=== PATIENT | female | born 1935 | race Caucasian/White ===

== ENCOUNTER 2017-01-25 02:31 | Inpatient (IN) | payer MEDICARE ==
[2017-01-25] MEDS ORDERED: NS 0.9% 1000 ML* 1,000 ML IV ONE (02:51)
[2017-01-25] MEDS ORDERED: Aspirin Low Dose CHEW TAB* 81 MG PO ONE (02:51)
[2017-01-25 03:08] LABS: Comments Flag Yes; Hematocrit 44 % (35-47); Hemoglobin 13.2 g/dl (12.0-16.0); Mean Corpuscular HGB Conc 30 g/dl (31-36); Mean Corpuscular Hemoglobin 27 pg (27-31); Mean Corpuscular Volume 89 fL (80-97); Mean Platelet Volume 9 um3 (7.4-10.4); Red Blood Count 4.91 10^6/ul (4.0-5.4); Red Cell Distribution Width 16 % (10.5-15); White Blood Count 16.7 10^3/ul (3.5-10.8)
[2017-01-25 03:09] LABS: Add Diff/Slide Review? Slide Review Added
[2017-01-25 03:23] LABS: ALT 59 U/L (7-52); Alkaline Phosphatase 99 U/L (34-104); BUN/Creatinine Ratio 9.8 (8-20); Blood Urea Nitrogen 14 mg/dL (6-24); CO2 Carbon Dioxide 19 mmol/L (22-32); Calcium 8.5 mg/dL (8.6-10.3); Chloride 104 mmol/L (101-111); Creatine Kinase 393 U/L (10-223); EGFR African American 45.1 (>60); Globulin 2.5 g/dL (2-4); Glucose 322 mg/dL (70-100); Magnesium 2.7 mg/dL (1.9-2.7); Sodium 135 mmol/L (133-145); Total Protein 5.5 g/dL (6.4-8.9)
[2017-01-25 03:27] LABS: Anion Gap 12 mmol/L (2-11); Potassium 4.6 mmol/L (3.5-5.0)
[2017-01-25 03:29] LABS: Troponin I 0.27 ng/mL (<0.04)
[2017-01-25] MEDS ORDERED: Norepinephrine 16MCG/ML IVPRE* 4,000 MCG/250 ML BAG IV ONE (04:22)
[2017-01-25] MEDS ORDERED: NS 0.9% 1000 ML* 1,000 ML IV SCH (04:45)
[2017-01-25] MEDS: Norepinephrine 16MCG/ML IVPRE* 4,000 MCG/250 ML BAG IV SCH ×2 (04:49→08:41)
[2017-01-25] MEDS ORDERED: Iodixanol* (CONTRAST) 320 MG/ML 100 ML SDV IV ONE (04:58)
--- NOTE | 2017-01-25 05:36 | ED ---
Shannen Bansal Salem, scribed for Ck Alonzo MD on 01/25/17 at 0304 . Cardiac Resuscitation - HPI Summary HPI Summary: Patient is a 81 y/o female who presents to the ED per EMS from [facility] s/p cardiac arrest. Pt arrived @ 0223 intubated and on transdermal pacer. Per EMS, she called 911 to report SOB and dropped while on the phone. When EMS arrived, pt was down for 15 minutes and was down for another 34 minutes with EMS. EMS was not able to get a pulse, but they were able to at the hospital. EMS also states pt is on Plavix and Isosorbide. Per EMS, pt's one year ago. Little is known on pts PMHx or FHx. - History of Current Complaint Chief Complaint: EDCardiacArrest Stated Complaint: POST CARDIAC ARREST Hx Obtained From: EMS, Other: - [facility]. Hx From Patient Unobtainable Due To: Extremis Arrest Witnessed: No Down-time Before Basic Life Support Initiated: Down-time before BLS initiated: - 15 minutes before EMS, 34 after. - Prehospital Intervention Breathing: Intubation: - Allergies/Home Medications Allergies/Adverse Reactions: Allergies Allergy/AdvReac Type Severity Reaction Status Date / Time Penicillins Allergy Unknown Unknown Verified 01/25/17 03:45 Reaction Details Sulfa Antibiotics Allergy Unknown Unknown Verified 01/25/17 03:45 Reaction Details Home Medications: Home Medications Albuterol HFA INHALER* [Ventolin HFA Inhaler*] 2 puff INH Q4H PRN 01/25/17 [ History Confirmed 01/25/17] Amlodipine Besylate [Norvasc 5 mg tab] 5 mg PO DAILY 01/25/17 [History Confirmed 01/25/17] Budesonide Flexhaler 90 (NF) [Pulmicort Flexhaler 90 mcg/act (NF)] 2 puff INH BID 01/25/17 [History Confirmed 01/25/17] Loratadine [Claritin 10 MG CAP] 10 mg PO 01/25/17 [History] Mometasone NASAL (NF) [Nasonex (NF)] 1 spray .SEE ORDER 01/25/17 [History] Montelukast Sodium TAB* [Singulair TAB*] 10 mg PO BEDTIME 01/25/17 [History Confirmed 01/25/17] - Past Medical History Past Medical History: Unobtainable Due to Extremis - Family History Family History: Unobtainable Due to Extremis - Social History Social History: Lives Alone - Review of Systems Review of Systems: Unobtainable Due to Extremis Physical Examination - Physical Examination Completion Of Physical Exam Limited Due To: Extremis Resuscitation: Successful - ED Findings Airway: Gag Reflex Absent Breathing: Apnea Circulation/Rhythm: Sinus Disability/Neurological: Unresponsive - Glascow Coma Score Eye Openin - None Motor: 1 - None Verbal: 1 - Intubated Coma Scale Total: 3 T Diagnostics - Vital Signs Vital Signs Temp Pulse Resp BP Pulse Ox 01/25/17 04:40 94.3 F 96 24 63/34 90 01/25/17 04:35 91.9 F 95 68/35 90 01/25/17 04:30 94 75/34 88 01/25/17 04:25 95 70/34 90 01/25/17 04:20 95 77/35 86 01/25/17 04:16 95 66/31 86 01/25/17 04:10 96 70/30 87 01/25/17 04:05 97 70/31 88 01/25/17 04:00 97 75/35 88 01/25/17 03:55 97 77/38 89 01/25/17 03:50 97 76/58 87 01/25/17 03:45 99 82/39 85 01/25/17 03:40 101 79/33 82 01/25/17 03:35 90/51 01/25/17 03:20 56 19 75 01/25/17 03:15 69 19 66/18 72 01/25/17 03:14 61 18 75 01/25/17 02:55 18 - Laboratory Lab Results: Lab Results 01/25/17 01/25/17 01/25/17 Range/Units 02:49 02:49 02:49 WBC 16.7 H (3.5-10.8) 10^3/ul RBC 4.91 (4.0-5.4) 10^6/ul Hgb 13.2 (12.0-16.0) g/dl Hct 44 (35-47) % MCV 89 (80-97) fL MCH 27 (27-31) pg MCHC 30 L (31-36) g/dl RDW 16 H (10.5-15) % Plt Count 213 (150-450) 10^3/ul MPV 9 (7.4-10.4) um3 Neut % (Auto) 74.1 (38-83) % Lymph % (Auto) 21.0 L (25-47) % [place] % (Auto) 2.7 (1-9) % Eos % (Auto) 1.5 (0-6) % Baso % (Auto) 0.7 (0-2) % Absolute Neuts (auto) 12.4 H (1.5-7.7) 10^3/ul Absolute Lymphs (auto) 3.5 (1.0-4.8) 10^3/ul Absolute Monos (auto) 0.5 (0-0.8) 10^3/ul Absolute Eos (auto) 0.2 (0-0.6) 10^3/ul Absolute Basos (auto) 0.1 (0-0.2) 10^3/ul Absolute Nucleated RBC 0.05 10^3/ul Nucleated RBC % 0.3 INR (Anticoag Therapy) 1.10 (0.89-1.11) D-Dimer, Quantitative > 1050 H (Less Than 230) ng/mL Sodium 135 (133-145) mmol/L Potassium 4.6 (3.5-5.0) mmol/L Chloride 104 (101-111) mmol/L Carbon Dioxide 19 L (22-32) mmol/L Anion Gap 12 H (2-11) mmol/L BUN 14 (6-24) mg/dL Creatinine 1.43 H (0.51-0.95) mg/dL Est GFR ( Amer) 45.1 (>60) Est GFR (Non-Af Amer) 35.0 (>60) BUN/Creatinine Ratio 9.8 (8-20) Glucose 322 H (70-100) mg/dL Lactic Acid (0.5-2.0) mmol/L Calcium 8.5 L (8.6-10.3) mg/dL Magnesium 2.7 (1.9-2.7) mg/dL Total Bilirubin 0.50 (0.2-1.0) mg/dL AST TNP ALT 59 H (7-52) U/L Alkaline Phosphatase 99 (34-104) U/L Total Creatine Kinase 393 H (10-223) U/L Troponin I 0.27 H* (<0.04) ng/mL B-Natriuretic Peptide ( - 100) pg/mL Total Protein 5.5 L (6.4-8.9) g/dL Albumin 3.0 L (3.2-5.2) g/dL Globulin 2.5 (2-4) g/dL Albumin/Globulin Ratio 1.2 (1-3) 01/25/17 01/25/17 Range/Units 02:49 02:49 WBC (3.5-10.8) 10^3/ul RBC (4.0-5.4) 10^6/ul Hgb (12.0-16.0) g/dl Hct (35-47) % MCV (80-97) fL MCH (27-31) pg MCHC (31-36) g/dl RDW (10.5-15) % Plt Count (150-450) 10^3/ul MPV (7.4-10.4) um3 Neut % (Auto) (38-83) % Lymph % (Auto) (25-47) % [place] % (Auto) (1-9) % Eos % (Auto) (0-6) % Baso % (Auto) (0-2) % Absolute Neuts (auto) (1.5-7.7) 10^3/ul Absolute Lymphs (auto) (1.0-4.8) 10^3/ul Absolute Monos (auto) (0-0.8) 10^3/ul Absolute Eos (auto) (0-0.6) 10^3/ul Absolute Basos (auto) (0-0.2) 10^3/ul Absolute Nucleated RBC 10^3/ul Nucleated RBC % INR (Anticoag Therapy) (0.89-1.11) D-Dimer, Quantitative (Less Than 230) ng/mL Sodium (133-145) mmol/L Potassium (3.5-5.0) mmol/L Chloride (101-111) mmol/L Carbon Dioxide (22-32) mmol/L Anion Gap (2-11) mmol/L BUN (6-24) mg/dL Creatinine (0.51-0.95) mg/dL Est GFR ( Amer) (>60) Est GFR (Non-Af Amer) (>60) BUN/Creatinine Ratio (8-20) Glucose (70-100) mg/dL Lactic Acid 7.6 H* (0.5-2.0) mmol/L Calcium (8.6-10.3) mg/dL Magnesium (1.9-2.7) mg/dL Total Bilirubin (0.2-1.0) mg/dL AST ALT (7-52) U/L Alkaline Phosphatase (34-104) U/L Total Creatine Kinase (10-223) U/L Troponin I (<0.04) ng/mL B-Natriuretic Peptide 356 H ( - 100) pg/mL Total Protein (6.4-8.9) g/dL Albumin (3.2-5.2) g/dL Globulin (2-4) g/dL Albumin/Globulin Ratio (1-3) Result Diagrams: 01/25/17 02:49 01/25/17 02:49 Lab Statement: Any lab studies that have been ordered have been reviewed, and results considered in the medical decision making process. - Radiology CXR Radiology Interpretation Completed By: ED Physician - Poor quality bilateral infiltrate. ET tube in place. - EKG 0235 Cardiac Rate: Tachycardia EKG Interpretation: @ 121 bpm. Complete heart block with ventricular escape rhythm. Re-Evaluation - Re-Evaluation First Eval Re-Evaluation Time: 02:57 Change: Unchanged Second Eval Re-Evaluation Time: 03:03 Change: Unchanged Cardiac Resus. Course/Dx - Course Course Of Treatment: 81 y/o presents per EMS from [facility] s/p cardiac arrest. She arrives intubated and on transdermal pacer. Troponin: 0.27. D-Dimer : 1050. CXR reveals poor quality bilateral infiltrate and ET tube in place. EKG reveals complete heart block with ventricular escape rhythm. Dr. Rawls is aware and will admit. - Diagnoses Provider Diagnoses: CARDIAC ARREST - Provider Notifications Discussed Care Of Patient With: Dr. Rawls (hospitalist) @ 0223 (arrival). Will admit. Instructed by Provider To: Admit As Inpatient - Critical Care Time Critical Care Time: 75-104 min Discharge - Discharge Plan Condition: Critical Disposition: ADMITTED TO [facility] documentation as recorded by the Shannen weaver Salem accurately reflects the service I personally performed and the decisions made by me, Ck Alonzo MD.
[2017-01-25] MEDS ORDERED: Heparin VIAL(*) 5000 UNITS/ML VIAL (FIVE THOUSAND) SUBCUT SCH (06:00)
[2017-01-25] MEDS ORDERED: VASOPRESSIN 20 UNITS/ML 1 ML VIAL ONE (06:21)
[2017-01-25] MEDS ORDERED: Vasopressin* 100 UNITS in D5W 250 ML BAG* 245 ML IVPB SCH (06:30)
[2017-01-25] MEDS ORDERED: Phenylephrine INJ* 10 MG/ML 1 ML VIAL (10 MG) ONE (06:38)
[2017-01-25] MEDS ORDERED: Phenylephrine INJ* 50 MG in NS 0.9% 250 ML* 245 ML IV SCH (07:00)
--- NOTE | 2017-01-25 08:03 | RAD ---
INDICATION: Post intubation COMPARISON: None TECHNIQUE: An AP portable view obtained at 0255 hours is submitted. FINDINGS: Bones/Soft Tissues: There are no acute bony findings. There is endotracheal intubation. Endotracheal tube appears in satisfactory position. A nasogastric tube passes normally through the mediastinum. External pacing pad is placed. There is artifact from a backboard. Cardiomediastinal: The cardiac silhouette is normal in size. The central pulmonary vessels are prominent. There is diffuse interstitial edema Lungs: Diffuse interstitial and alveolar edema. Given these diffuse changes, coexistent infiltrates are not excluded.. Pleura: No significant effusions. Other: None IMPRESSION: PULMONARY EDEMA. ENDOTRACHEAL TUBE IN SATISFACTORY POSITION.
[2017-01-25] MEDS ORDERED: Perflutren Prot Type A Micr (NF) 3 ML SDV IV ONE (08:06)
--- NOTE | 2017-01-25 08:08 | RAD ---
INDICATION: Unresponsive. Respiratory distress COMPARISON: None TECHNIQUE: Noncontrast axial source images were acquired from the skull base to the vertex. FINDINGS: Ventricles/sulci: There is cortical atrophy with compensatory dilatation of the CSF spaces. Brain parenchyma: There is mild periventricular and subcortical white matter change compatible with chronic ischemia. Intracranial hemorrhage:None. Extra-axial spaces: There are no abnormal extra axial fluid collections or evidence of extra-axial mass. Calvarium: There is no calvarial fracture or other calvarial abnormality. Scalp: There is no evidence of scalp or extracalvarial soft tissue abnormality. Paranasal sinuses/mastoid: Phase of mild chronic sinusitis. No air-fluid levels.. Other: None. IMPRESSION: NO ACUTE INTRACRANIAL FINDINGS
[2017-01-25] MEDS ORDERED: Morphine INJ* 10 MG/ML 1 ML SYRINGE IV ONE (08:51)
[2017-01-25] MEDS ORDERED: Morphine INJ* 10 MG/ML 1 ML SYRINGE IV PRN (08:51)
[2017-01-25] MEDS ORDERED: Morphine INJ* 10 MG/ML 1 ML SYRINGE ONE (08:54)
[2017-01-25 09:19] VITALS: BP 73/40
--- NOTE | 2017-01-25 09:37 | PN ---
Progress Note - Progress Note Note: CRITICAL CARE MEDICINE Date: 01/25/17 Time: 830 SUBJECTIVE: Patient seen and examined. Family at bedside. PHYSICAL EXAM: on levo 30, latosha, vaso. anuric Vital Signs: Reviewed. SBP 70. Sats 80s. Neurologic: uneq pupils with R fixed and dilated, left small and nonreactive. neg corneals, neg ocr. Agonal respirations, +myoclonus. HEENT: Sclera anicteric. Trachea intubated. Cardiovascular: S1 S2 distant Respiratory: coarse rales Abdomen: Soft, distended Extremities: Cold LABS: Reviewed. LA still 7 IMAGING: Reviewed. MEDICATIONS: Reviewed. ASSESSMENT: 81 F OOH Cardiac arrest - asystole Cardiogenic shock Acute pulmonary edema Anoxic brain injury/Coma Acute hypoxic respiratory failure Acute renal failure with ATN PLAN: Pt with prolonged downtime after summoning EMS. likely resp arrest leading to hypoxia and cardiogenic with subsequent asystole on scene. ROSC but with continued shock and MSOF with associated anoxic mari injury. Has been attempting to maintain overnight with ttm euthermia (36C) and multiple vasopressors required with failure to perfusion ongoing and unsurvivable state. D/w family: pt had been living alone. active previously. They expressed understanding of a dismal prognosis and failing efforts at present. All in agreement for withdrawal of life support and comfort care initiated. Morphine given, meds stopped and terminally extubated. Pt passed at 910 with family present. They decline autopsy. Disposition: Code Status: DNR Critical Care Time: 35min Nehemias Murphy DO
--- NOTE | 2017-01-25 10:07 | HP ---
HISTORY AND PHYSICAL: DATE OF ADMISSION: 01/25/17 CHIEF COMPLAINT: Cardiac arrest. HISTORY OF PRESENT ILLNESS: Please note the history was obtained from EMS and her family as the patient is intubated and not responsive. The patient is an 81-year-old woman who apparently called EMS tonight saying she was suddenly short of breath, and, while on the phone with the EMS, became unresponsive. EMS says from the time she was unresponsive to the time they got there was approximately 15 minutes. Upon arrival, they found that she had no pulse and she received cardiac resuscitation. She was resuscitated in the field for about 15 minutes to one-half hour, and then subsequently again for 40 minutes at [facility]. After 40 minutes, they were able to get a pulse. The patient was paced and sent over to [facility]. At the hospital , the patient initially had a very poor heart rate of only in the 10 to 20s, but it subsequently became increased to approximately 96 beats per minute. She had apparently, according to the family, all she had for complaints was a cough last week which she was taking Mucinex for and a couple of days ago she vomited , but she said it was from gagging from the cough. They said that ordinarily she is very healthy and bowls twice a week. In fact, the other day they just went to lunch and she was in her usual state of health. 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 CURRENT MEDICATIONS: Unknown. Last medications we have were: 1. Singulair 10 mg at bedtime. 2. Budesonide inhaler two puffs twice daily. 3. Amlodipine 5 mg daily. 4. Albuterol inhaler two puffs every 4 hours as needed. 5. Nasonex one spray each nostril daily. 6. Loratadine 10 mg daily. 7. Plavix 75 mg daily. ALLERGIES: She has an allergy/adverse reaction to PENICILLIN and SULFA antibiotics. FAMILY HISTORY: Sister apparently from sudden shortness of breath two years ago of unknown cause. SOCIAL HISTORY: No tobacco. Drinks a couple of beers once in a while. No recreational use. She is retired from [employer]. She is . Her daughters are Kelsy Ramírez, Alexandra Banks, and she has four children. She has no documented healthcare proxy, but they are her next of kin. REVIEW OF SYSTEMS: Unable to obtain from the patient as she is intubated. PHYSICAL EXAMINATION VITAL SIGNS: She is hypothermic with a temperature of 94.3 degrees, heart rate 96 beats per minute, respiratory rate 24 breaths per minute, pulse oxygenation 9 % on the vent, and blood pressure of 63/34. HEENT: Normocephalic, atraumatic. Pupils are dilated and fixed. NECK: Supple. No JVD, bruits, palpable thyroid. CHEST: Rhonchi throughout. CARDIOVASCULAR: S1, S2 appreciated. ABDOMEN: Obese, positive bowel sounds in all 4 quadrants. Soft; it's distended. EXTREMITIES: No cyanosis or clubbing. She has got bilateral edema. NEUROLOGIC: She is unresponsive and intubated. SKIN: No distinct rashes or abnormalities. LABORATORY DATA: White count 16.7, hemoglobin 13.2, hematocrit 44, platelets 213. Sodium 135, potassium 4.6, chloride 104, CO2 19, BUN 14, creatinine 1.43, glucose 322. Lactic acid 7.6. Troponin 0.27. BNP 356. INR 1.1. D-dimer greater than 10.50. Chest x-ray: Preliminary findings show pulmonary edema but no pleural effusions. EKG shows ventricular rhythm, complete heart block. Brain CT shows no acute intracranial abnormalities. ASSESSMENT AND PLAN: 1. Cardiac arrest: At this point, it is unclear. I do not think she had a myocardial infarction; although her troponins are somewhat elevated, they are not as elevated as I thought they would be, especially after receiving CPR for such an extended period. Her prognosis is very grave, and I explained this to the family who have made her do not resuscitate. I am concerned about a pulmonary embolism and flash pulmonary edema. She has polycythemia vera, which does increase her chance for blood clots and she stopped having blood-letting over one year ago. If her blood pressure can sustain it, I would like to get a CT of her chest. We will maintain her blood pressure with Levophed at this time and normal saline wide open. She is not currently making any urine. I would ordinarily give her Lasix, but I do not think her blood pressure will tolerate it at this time. 2. Hypertension: Blood pressure is actually hypotensive; obviously, hold antihypertensives. 3. Deep venous thrombosis prophylaxis: Heparin subcu, but may need heparin if she had a PE. 4. The patient is do not resuscitate. TIME SPENT: Over 90 minutes were spent on this H and P, more than 50 minutes of which were spent direct [id number] contact with the patient and family in counseling and coordination of care. [id number]/[facility] #: [id number] BERT
--- NOTE | 2017-01-25 11:19 | DS ---
CRITICAL CARE MEDICINE DISCHARGE SUMMARY ADMISSION DATE: 01/25/2017 ICU ADMISSION DATE: 01/25/2017 ICU DISCHARGE DATE: 01/25/2017 REFERRING PHYSICIAN: Dr. Alonzo DIAGNOSIS: 1. Out of hospital cardiac arrest. 2. Acute pulmonary edema. 3. Cardiogenic shock. 4. Coma. 5. Anoxic brain injury. 6. Acute hypoxic respiratory failure. 7. Acute renal failure with component of acute tubular necrosis. 8. Lactic acidosis. MEDICATIONS AT DISCHARGE: None. HOSPITAL COURSE: 81 year old female who summoned emergency services and apparently went unresponsive while on the phone with them. EMS arrival about 15 minutes later with patient asystole. Resuscitation efforts ensued for about 20 minutes in the field and about 40 minutes at [facility] with return of circulation. Patient transferred to [place] for higher level of care. Remained with cardiogenic shock and coma with signs of multisystem organ failure. Unclear etiology of initial event other then surmising a respiratory ailment leading to hypoxia and ensuing lethal cardiac arrhythmia and demise. Too unstable for cat scan. Family was aware and patient was supported as a Do Not Resuscitate from then on. Patient maintained for about 6 hours in the ICU without any signs of recoverability and continued hypoperfusion despite max support. Family agree for comfort measures. Patient was terminally extubated in the intensive care unit and passed at 9:10 am. DISPOSITION: . Family declined autopsy. Nehemias Murphy DO
== END 2017-01-25 09:10 | disposition expired | DRG 296 ==
LOC: ED 02:31 → ICU 04:52
PROVIDERS: ADMIT Internal Medicine; ATTEND Internal Medicine Critical Care Medicine
PROC: 5A1935Z Respiratory Ventilation, Less than 24 Consecutive Hours (ICD-10-PCS; principal; 2017-01-25)
DX: I46.9 Cardiac arrest, cause unspecified (principal); J81.0 Acute pulmonary edema; J96.01 Acute respiratory failure with hypoxia; N17.0 Acute kidney failure with tubular necrosis; R57.0 Cardiogenic shock; G93.1 Anoxic brain damage, not elsewhere classified; E87.2 Acidosis; R40.2432 Glasgow coma scale score 3-8, at arrival to emergency department; J44.9 Chronic obstructive pulmonary disease, unspecified; I10 Essential (primary) hypertension; D45 Polycythemia vera; H40.9 Unspecified glaucoma; Z79.02 Long term (current) use of antithrombotics/antiplatelets; Z79.899 Other long term (current) drug therapy; Z88.0 Allergy status to penicillin; Z88.2 Allergy status to sulfonamides; Z66 Do not resuscitate
CPT/HCPCS: 36415; 70450; 71010; 80053; 82550; 83605; 83735; 83880; 84484; 85025; 85379; 85610; 93005; 93306; 94002; 94003; C8929; J2270; Q9956